=== PATIENT | female | born 1970 | race African-American/Black ===

== ENCOUNTER 2021-09-05 15:09 | Outpatient (CLI) | payer OTHER | END 2021-09-05 15:10 | disposition home or self-care (01) | LOC: CSHLAB 15:09 | PROVIDERS: ATTEND Internal Medicine Gastroenterology | DX: Z20.822 Contact with and (suspected) exposure to COVID-19 (principal); K21.9 Gastro-esophageal reflux disease without esophagitis | CPT/HCPCS: U0003; U0005 ==

== ENCOUNTER 2021-09-08 11:43 | Day surgery (SDC) | payer OTHER ==
[2021-09-05 09:56] VITALS: BMI 49.8
[2021-09-08] MEDS ORDERED: PROPOFOL 20 ML ONE (13:33)
[2021-09-08] MEDS ORDERED: Lidocaine 4% PF 5 ML AMP ONE (13:33)
== END 2021-09-08 14:23 | disposition home or self-care (01) ==
LOC: CSHSDC 11:43
PROVIDERS: ATTEND Internal Medicine Gastroenterology
PROC: 0DB78ZX Excision of Stomach, Pylorus, Via Natural or Artificial Opening Endoscopic, Diagnostic (ICD-10-PCS; principal; 2021-09-08)
DX: K31.89 Other diseases of stomach and duodenum (principal); K25.9 Gastric ulcer, unspecified as acute or chronic, without hemorrhage or perforation; K29.80 Duodenitis without bleeding; K44.9 Diaphragmatic hernia without obstruction or gangrene; K21.9 Gastro-esophageal reflux disease without esophagitis; E11.9 Type 2 diabetes mellitus without complications; E03.9 Hypothyroidism, unspecified; I10 Essential (primary) hypertension; J45.909 Unspecified asthma, uncomplicated; E66.01 Morbid (severe) obesity due to excess calories; Z68.42 Body mass index [BMI] 45.0-49.9, adult; Z79.890 Hormone replacement therapy; Z79.899 Other long term (current) drug therapy
CPT/HCPCS: 88305; J2704